=== PATIENT | female | born 1985 ===

== ENCOUNTER 2021-06-22 17:31 | Outpatient (CLI) | payer OTHER ==
[2021-06-22] MEDS ORDERED: PRENATAL TABLE1 EAC1 PO (18:54)
[2021-06-22] MEDS ORDERED: IRON325 MG PO (18:54)
[2021-06-22] MEDS ORDERED: CHILDREN'S ASPI81 MG PO (18:54)
== END 2021-06-23 09:40 | disposition home or self-care (01) ==
LOC: OBS/DEL 17:31
PROVIDERS: ATTEND Obstetrics & Gynecology
DX: O26.893 Other specified pregnancy related conditions, third trimester (principal); R00.2 Palpitations; Z3A.32 32 weeks gestation of pregnancy

== ENCOUNTER 2021-06-24 12:08 | Emergency (ER) | payer OTHER ==
[~2021-06-24] VITALS: Ht 160 cm; Wt 68.0 kg
[~2021-06-24 12:08] MED LIST: CHILDREN'S ASPI81 MG PO; IRON325 MG PO; PRENATAL TABLE1 EAC1 PO
== END 2021-06-24 15:20 | disposition home or self-care (01) ==
LOC: ER 12:08
DX: O26.893 Other specified pregnancy related conditions, third trimester (principal); R00.2 Palpitations; Z34.83 Encounter for supervision of other normal pregnancy, third trimester

== ENCOUNTER 2021-07-20 10:54 | Inpatient (IN) | payer OTHER ==
[~2021-07-20] VITALS: Ht 160 cm; Wt 66.7 kg
[2021-07-20] MEDS ORDERED: HYDROXYZINE PAM25 MG (15:12)
== END 2021-07-22 11:28 | DRG 831 ==
LOC: LDR 10:54
PROVIDERS: ADMIT Obstetrics & Gynecology; ATTEND Obstetrics & Gynecology
PROC: B246ZZZ Ultrasonography of Right and Left Heart (ICD-10-PCS; principal; 2021-07-20)
PROC: BY4FZZZ Ultrasonography of Third Trimester, Single Fetus (ICD-10-PCS; 2021-07-20)
PROC: 4A1HXCZ Monitoring of Products of Conception, Cardiac Rate, External Approach (ICD-10-PCS; 2021-07-20)
DX: O26.893 Other specified pregnancy related conditions, third trimester (principal); U07.1 COVID-19; O98.513 Other viral diseases complicating pregnancy, third trimester; R00.2 Palpitations; Z3A.35 35 weeks gestation of pregnancy

== ENCOUNTER 2021-08-05 07:11 | Inpatient (IN) | payer OTHER ==
[~2021-08-05] VITALS: Ht 160 cm; Wt 65.8 kg
[~2021-08-05 07:11] MED LIST changes: +HYDROXYZINE PAM25 MG
== END 2021-08-07 13:38 | disposition home or self-care (01) | DRG 807 ==
LOC: LDR 07:11 → SURG-SUITE 11:48
PROVIDERS: ADMIT Obstetrics & Gynecology; ATTEND Obstetrics & Gynecology
PROC: 10E0XZZ Delivery of Products of Conception, External Approach (ICD-10-PCS; principal; 2021-08-05)
PROC: 0W8NXZZ Division of Female Perineum, External Approach (ICD-10-PCS; 2021-08-05)
PROC: 4A1HXCZ Monitoring of Products of Conception, Cardiac Rate, External Approach (ICD-10-PCS; 2021-08-05)
DX: O80 Encounter for full-term uncomplicated delivery (principal); Z37.0 Single live birth; Z3A.38 38 weeks gestation of pregnancy

== ENCOUNTER 2025-04-05 07:00 | Day surgery (SDC) | payer OTHER ==
[2025-03-29 13:10] VITALS: BP 153/82
[~2025-04-05] VITALS: Ht 160 cm; Wt 61.2 kg
[~2025-04-05 07:00] MED LIST changes: +SYNTHROID50 MCG PO; +TOPROL XL25 M1 PO
[2025-04-05] MEDS ORDERED: POVIDONE-IODINE 118 ML BOTT TOP ONE (07:53)
[2025-04-05] MEDS ORDERED: ONDANSETRON HCL 2 MG/ML VIAL IV ONE (10:15)
[2025-04-05] MEDS ORDERED: KETOROLAC TROMETHAMINE 30 MG VIAL IV ONE (10:15)
== END 2025-04-05 13:55 | disposition home or self-care (01) ==
LOC: CIR.AMB 07:00
PROVIDERS: ATTEND Obstetrics & Gynecology
DX: N84.0 Polyp of corpus uteri (principal); N93.8 Other specified abnormal uterine and vaginal bleeding